=== PATIENT | male | born 1960 | race Caucasian/White ===

== ENCOUNTER 2020-05-15 06:46 | Outpatient (REF) | payer OTHER, SELFPAY ==
[2020-05-15 08:01] LABS: MANUAL DIFF FLAG NO
[2020-05-15 08:04] LABS: Eosinophils Absolute Auto 0.4 X10*3/uL (0.0-0.4); Eosinophils Percent Auto 9.9 % (0-4); Hematocrit 44.1 % (42-52); Hemoglobin 14.7 g/dl (14.0-18.0); Imm Gran Abs Auto 0.01 X10*3/uL (0.00-0.03); Imm Gran Pct Auto 0.2 % (0.0-0.4); Lymphocytes Absolute Auto 1.2 X10*3/uL (1.2-4.9); Lymphocytes Percent Auto 28.5 % (20-40); Mean Corpuscular HGB Conc 33.3 g/dl (31.0-36.0); Mean Corpuscular Hemoglobin 30.4 pg (27.0-33.0); Mean Corpuscular Volume 91.3 fL (80-98); Monocytes Absolute Auto 0.5 X10*3/uL (0.1-1.2); Monocytes Percent Auto 10.9 % (2-11); Neutrophils Absolute Auto 2.1 X10*3/uL (2.0-8.3); Neutrophils Percent Auto 49.5 % (45-73); Platelet Count 230 X10*3/uL (160-400); Red Blood Count 4.83 X10*6/uL (4.60-5.80); Red Cell Distribution Width 11.7 % (11.0-16.0); White Blood Count 4.1 X10*3/uL (4.8-10.8)
[2020-05-15 08:13] LABS: Glucose Urine UA NEG (NEG); Leukocyte Esterase Urine NEG (NEG); Nitrite Urine NEG (NEG); Specific Gravity - Urine 1.025 (1.005-1.025); Urine Blood NEG (NEG); Urine Ketones NEG (NEG); Urine Protein NEG (NEG-TRACE)
[2020-05-15 08:14] LABS: Appearance Urine CLEAR; Color Urine YELLOW
[2020-05-15 08:26] LABS: RBC Urine 0 /HPF (0); WBC Urine 0 /HPF (0-4)
[2020-05-15 09:13] LABS: Cholesterol 200 mg/dL; HDL Cholesterol 39 mg/dL; LDL Cholesterol Calculated 136 mg/dl; Triglycerides 129 mg/dL
[2020-05-15 09:33] LABS: Prostate Specific Antigen 0.52 ng/mL (<0.05-4.0); Thyroid Stimulating Hormone 1.02 uIU/mL (0.32-4.0)
== END 2020-05-15 06:47 | disposition home or self-care (01) ==
LOC: HO.LAB 06:46
PROVIDERS: Visit Provider Internal Medicine
DX: I10 Essential (primary) hypertension (principal)
CPT/HCPCS: 36415; 80061; 81001; 84153; 84443; 85025

== ENCOUNTER 2020-09-25 11:55 | Outpatient (REF) | payer OTHER, SELFPAY ==
--- NOTE | ~2020-09-25 | XR_ITS ---
EXAMINATION: XR CHEST CLINICAL INFORMATION: Flank pain COMPARISON: Previous chest x-ray August 2018 TECHNIQUE: 2 views of the chest were obtained. FINDINGS: The cardiac and mediastinal contours are stable. The lungs are clear. There is no pleural effusion or pneumothorax. There is curvature of the midthoracic spine to the right and degenerative change. There may be postsurgical changes to the right shoulder. XR/XR chest 2V IMPRESSION: No evidence for acute disease in the chest.
[2020-09-25 12:55] LABS: MANUAL DIFF FLAG NO
[2020-09-25 13:15] LABS: Basophils Percent Auto 0.8 % (0-2); Eosinophils Absolute Auto 0.4 X10*3/uL (0.0-0.4); Eosinophils Percent Auto 9.9 % (0-4); Hematocrit 41.8 % (42-52); Hemoglobin 13.9 g/dl (14.0-18.0); Imm Gran Abs Auto 0.01 X10*3/uL (0.00-0.03); Imm Gran Pct Auto 0.3 % (0.0-0.4); Lymphocytes Absolute Auto 1.4 X10*3/uL (1.2-4.9); Lymphocytes Percent Auto 34.9 % (20-40); Mean Corpuscular HGB Conc 33.3 g/dl (31.0-36.0); Mean Corpuscular Hemoglobin 30.3 pg (27.0-33.0); Mean Corpuscular Volume 91.1 fL (80-98); Mean Platelet Volume 9.1 fL (9.4-12.4); Monocytes Absolute Auto 0.5 X10*3/uL (0.1-1.2); Monocytes Percent Auto 11.4 % (2-11); Neutrophils Absolute Auto 1.7 X10*3/uL (2.0-8.3); Neutrophils Percent Auto 42.7 % (45-73); Platelet Count 238 X10*3/uL (160-400); Red Blood Count 4.59 X10*6/uL (4.60-5.80)
[2020-09-25 13:15] LABS: Glucose Urine UA NEG (NEG); Leukocyte Esterase Urine NEG (NEG); Nitrite Urine NEG (NEG); Urine Blood NEG (NEG); Urine Ketones NEG (NEG); Urine Protein NEG (NEG-TRACE)
[2020-09-25 13:20] LABS: Appearance Urine CLEAR; Color Urine STRAW
[2020-09-25 13:38] LABS: Alanine Aminotransferase 30 U/L (0-40); Albumin Level 4.3 g/dL (3.5-5.0); Alkaline Phosphatase 53 U/L (39-117); Anion Gap 14 (12-20); Aspartate Amino Transferase 34 U/L (5-37); Bilirubin Total 0.4 mg/dL (0.0-1.0); Blood Urea Nitrogen 16 mg/dL (9-16); C Reactive Protein 0.13 mg/dL (< or = 0.50); Calcium 9.1 mg/dL (8.4-10.2); Carbon Dioxide 25 mmol/L (22-29); Chloride 104 mmol/L (96-108); Estimated Glomerular Filt Rate > 60; Glucose Random 98 mg/dL (60-115); Lipase 25 U/L (8-78); Potassium 4.2 mmol/L (3.3-5.1); Sodium 139 mmol/L (135-145); Total Protein 7.1 g/dL (6.5-8.0)
[2020-09-25 13:44] LABS: Thyroid Stimulating Hormone 1.35 uIU/mL (0.32-4.0)
[2020-09-25 14:15] LABS: Prostate Specific Antigen 0.62 ng/mL (<0.05-4.0)
== END 2020-09-25 11:56 | disposition home or self-care (01) ==
LOC: HO.LAB 11:55
PROVIDERS: PCP Internal Medicine; Visit Provider Internal Medicine
DX: Z12.5 Encounter for screening for malignant neoplasm of prostate (principal); R10.9 Unspecified abdominal pain
CPT/HCPCS: 36415; 71046; 80053; 81003; 83690; 84153; 84443; 85025; 86140

== ENCOUNTER 2020-10-04 08:16 | Outpatient (REF) | payer OTHER, SELFPAY ==
--- NOTE | ~2020-10-04 | CT_ITS ---
EXAMINATION: CT ABDOMEN AND PELVIS WITHOUT CONTRAST CLINICAL INFORMATION: Abdominal pain COMPARISON: Previous abdominal ultrasound September [address] of the abdomen and pelvis June 2018 TECHNIQUE: Multidetector volumetric imaging was performed from the superior aspect of the liver through the pubic symphysis. Sagittal and coronal reformatted images were obtained on the technologist's workstation. This CT examination was performed using dose optimization techniques as appropriate, variously including the following: *Automated exposure control *Adjustment of mA and/or kV according to patient size (this includes techniques or standardized protocols for targeted exams where dose is matched to indication/reason for exam; i.e. extremities or head) *Use of iterative reconstruction technique DLP: 799 mGy-cm FINDINGS: LUNG BASES: The visualized lung bases are unremarkable. LIVER, GALLBLADDER, AND BILIARY TREE: The liver is normal in size, shape, and attenuation. No focal hepatic lesion or biliary ductal dilatation is present. The gallbladder is unremarkable with no evidence of radiopaque gallstones, gallbladder wall thickening, or obvious pericholecystic inflammatory changes. PANCREAS: Unremarkable. SPLEEN: Unremarkable. ADRENAL GLANDS: Unremarkable. KIDNEYS AND URETERS: The kidneys are normal in size, shape, and attenuation. No hydronephrosis, hydroureter, or calculi seen. No perinephric stranding. BLADDER: Not optimally distended. GASTROINTESTINAL TRACT: There is diverticulosis of the colon. No evidence of diverticulitis is seen. The small and large bowel are otherwise unremarkable. The appendix is unremarkable. Stomach is unremarkable. ABDOMINAL WALL: No significant hernia is appreciated. LYMPH NODES: Normal. VASCULAR: Unremarkable. PELVIC VISCERA: Unremarkable. OSSEOUS STRUCTURES: There are degenerative changes of the spine. 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 CT/CT abdomen pelvis wo con IMPRESSION: Diverticulosis of the colon. No evidence of diverticulitis.
== END 2020-10-04 08:17 | disposition home or self-care (01) ==
LOC: HO.CT 08:16
PROVIDERS: Visit Provider Internal Medicine
DX: R10.9 Unspecified abdominal pain (principal)
CPT/HCPCS: 74176

== ENCOUNTER → 2022-01-21 13:01 | Outpatient (BNVA) | payer SELFPAY | PROVIDERS: PCP Internal Medicine; Visit Provider Internal Medicine | DX: Z02.79 Encounter for issue of other medical certificate (principal) ==

== ENCOUNTER → 2023-04-27 07:43 | Outpatient (BNVA) | payer SELFPAY | PROVIDERS: PCP Internal Medicine; Visit Provider Physician Assistant Medical | DX: Z02.79 Encounter for issue of other medical certificate (principal) ==

== ENCOUNTER 2023-08-28 15:15 | Outpatient (AMB) | payer OTHER, SELFPAY ==
--- NOTE | 2023-08-28 15:28 | A.OFFVIS_ITS ---
Intake Intake Visit Reasons: Benign prostatic hyperplasia (Confirmed) Intake Note: New Patient presents for initial visit for BPH/nocturia Urology Medications: flomax Blood Thinner: none PVR: Carriage Rider Required: No Accompanied by: Self / Same As Patient Allergies No Known Allergies Allergy (Unverified 08/28/23 15:30) family hx of allergy to IVP dy Allergy (Unknown, Uncoded 08/28/23 15:30) Unknown LATEX Allergy (Unknown, Uncoded 08/28/23 15:30) Unknown N.K.D.A. Allergy (Unknown, Uncoded 08/28/23 15:30) Unknown Medication List - Last Reconciled 08/28/23 by Nazario Tavares MD propranolol ER 60 mg PO DAILY tamsulosin 0.4 mg PO DAILY terazosin 10 mg PO BEDTIME 30 days valsartan 160 mg PO DAILY HPI HPI Comments History of Present Illness Details Leroy is a pleasant male. He is a patient of Dr. Akers. He is seen for the following urologic conditions - bladder outlet obstruction Lower urinary tract symptoms Progressive Urinary weakness Feeling of incomplete emptying Did not tolerate tamsulosin or terazosin secondary to blood pressure issues Discussed renal bladder ultrasound with cystoscopy Review of Systems Const Denies chills and Denies fever(s) Card Reports no additional complaints and Denies syncope Resp Denies cough GI Denies abdominal pain and Denies heartburn Reports as per HPI and Denies change in libido Neuro Denies syncope Psych Denies change in libido Endo Denies change in libido Physical Exam Const General: cooperative, healthy appearing, comfortable and no acute distress Orientation/consciousness: patient oriented x3 HEENT Face and sinus: Yes normal facial exam Mouth: moist mucous membranes Neck Neck: Yes normal visual inspection, Yes full ROM and Yes trachea midline Chest Chest palpation & inspection: normal inspection of the chest Resp Effort & Inspection: normal respiratory effort, able to speak in complete sentences and no respiratory distress GI Inspection: Yes normal to inspection Back/Spine/Pelvis Cervical Spine: normal cervical lordosis Thoracic/Lumbar Spine: thoracic and lumbar spine normal to inspection Skin General skin exam: no rashes or lesions noted Neuro General: patient oriented x3, gait normal, tone normal and moves all extremities Extrem General: Yes normal to inspection and Yes capillary refill normal Office Procedures Post Void Residual Post Residual Void Post Void Residual (PVR): 0 [id number] Void Residual by ultrasound Results AMB Urinalysis, Automated UA Leukoctes 0 Robinson/uL Last Edit by Lacey William on 08/28/23 15:39 UA Nitrite Negative Last Edit by Lacey William on 08/28/23 15:39 UA Urobilinogen 0.2 mg/dL Last Edit by Lacey Willaim on 08/28/23 15:39 UA Protein 0 mg/dL Last Edit by Lacey William on 08/28/23 15:39 UA pH 7.5 Last Edit by Lacey William on 08/28/23 15:39 UA Blood 0 Neal/uL Last Edit by Lacey William on 08/28/23 15:39 UA Specific [place] 1.010 Last Edit by Lacey William on 08/28/23 15:39 UA Ketone Negative Last Edit by Lacey William on 08/28/23 15:39 UA Bilirubin 0 mg/dL Last Edit by Lacey William on 08/28/23 15:39 UA Glucose 0 mg/dL Last Edit by Lacey William on 08/28/23 15:39 Results Reviewed Results Reviewed: Laboratory Last Values Urine pH (Auto) 7.5 08/28/23 15:39 Specific [place] (Auto) 1.010 08/28/23 15:39 Urine Protein (Auto) 0 mg/dL 08/28/23 15:39 Glucose (UA)(Auto) 0 mg/dL 08/28/23 15:39 Urine Ketones (Auto) Negative 08/28/23 15:39 Urine Blood (Auto) 0 Neal/uL 08/28/23 15:39 Urine Nitrite (Auto) Negative 08/28/23 15:39 Urine Bilirubin (Auto) 0 mg/dL 08/28/23 15:39 Urine Urobilinogen (Auto) 0.2 mg/dL 08/28/23 15:39 Leukocyte Esterase (Auto) 0 Robinson/uL 08/28/23 15:39 Assessment & Plan Assessment & Plan (1) Bladder outlet obstruction: Code(s): N32.0 - Bladder-neck obstruction Plan Renal bladder ultrasound Cystoscopy Orders: Orders AMB Urinalysis Automated 08/28/23 Z13.9 - Encounter for screening, unspecified AMB Post Void Residual by ultrasound 08/28/23 Z13.9 - Encounter for screening, unspecified US bladder 08/28/23 R39.12 - Poor urinary stream, N32.0 - Bladder-neck obstruction Medications: New terazosin 10 mg PO BEDTIME 30 caps 1RF 30 days N32.0 - Bladder-neck obstruction, N40.1 - Benign prostatic hyperplasia with lower urinary tract symptoms, N13.8 - Other obstructive and reflux uropathy Patient Instructions: Imaging studies, laboratory and physical exam results were discussed and reviewed in detail. No major barriers to patient understanding were identified. An opportunity to ask questions regarding the treatment plan was provided. All questions were answered. The patient expressed understanding and agreement with the above treatment plan. The patient is aware they should contact our office by phone for worsening of their current condition or the appearance of new urologic symptoms. Compliance is encouraged with any medications and followup testing that is ordered. It is a privilege to participate in the urologic care of your patient. If you have any questions or concerns regarding treatment for the above conditions, or other urologic issues, please do not hesitate to contact me. The office telephone contact is [phone]. This note is constructed using voice recognition software. While every effort has been made to ensure accuracy food counter worker errors may have been included. Yours sincerely, Dr Nazario Tavares MD, MARTHA [facility] - Urology Providers of Expert, Compassionate Care for the Genitourinary System Coding Level of Care Code New Pt Level 4 (33449) Diagnoses Bladder outlet obstruction N32.0 CPT Codes Post Residual Void - PVR CPT Code: 12889-Rczb Void Residual by ultrasound ([id number])
== END 2023-08-28 15:42 | disposition home or self-care (01) ==
PROVIDERS: PCP Internal Medicine; Visit Provider Urology
DX: N32.0 Bladder-neck obstruction (principal)
CPT/HCPCS: 99204

== ENCOUNTER → 2023-08-28 15:15 | Outpatient (BNVA) | payer OTHER, SELFPAY | PROVIDERS: PCP Internal Medicine; Visit Provider Urology | DX: N40.1 Benign prostatic hyperplasia with lower urinary tract symptoms (principal); N13.8 Other obstructive and reflux uropathy | CPT/HCPCS: 51798; 81003 ==

== ENCOUNTER 2023-10-22 15:46 | Outpatient (REF) | payer OTHER, SELFPAY ==
--- NOTE | ~2023-10-22 | US_ITS ---
EXAMINATION: US PELVIS LIMITED (BLADDER) CLINICAL INFORMATION: Poor urinary stream. COMPARISON: CT abdomen and pelvis 10/04/2020. Ultrasound abdomen complete 10/25/2018 and 01/22/2017. MRI abdomen 06/03/2017. TECHNIQUE: Real-time imaging of the bladder. FINDINGS: BLADDER: Well distended. Mild diffuse trabeculation and borderline thickening of the bladder wall. Bilateral ureteral jets are demonstrated. Prevoid bladder volume is 436.9 mL. Postvoid bladder volume is 232.7 mL. ADDITIONAL FINDINGS: Prostate volume 42.5 mL, enlarged. US/US bladder IMPRESSION: 1. Mild diffuse trabeculation and borderline thickening of the bladder wall. 2. Postvoid bladder volume is 232.7 mL. 3. Enlarged prostate.
== END 2023-10-22 15:47 | disposition home or self-care (01) ==
LOC: HO.US 15:46
PROVIDERS: PCP Nurse Practitioner Family; Visit Provider Urology
DX: R39.12 Poor urinary stream (principal); N32.0 Bladder-neck obstruction
CPT/HCPCS: 76857

== ENCOUNTER 2023-10-30 09:57 | Outpatient (AMB) | payer OTHER, SELFPAY ==
--- NOTE | 2023-10-30 10:07 | A.OFFVIS_ITS ---
Intake Visit Reasons: cysto/US(set) Intake Note: Patient is Present for Cystoscopy Urology Med: None Antibiotic Allergy:None Blood Thinner:None URO- G Disposable Cystoscope lot: [id number] exp: 05/07/2026 Allergies No Known Allergies Allergy (Verified 10/30/23 10:11) family hx of allergy to IVP dy Allergy (Unknown, Uncoded 10/30/23 10:11) Unknown LATEX Allergy (Unknown, Uncoded 10/30/23 10:11) Unknown N.K.D.A. Allergy (Unknown, Uncoded 10/30/23 10:11) Unknown Medication List - Last Reconciled 10/30/23 by Nazario Tavares MD propranolol ER 60 mg PO DAILY tadalafil 5 mg PO DAILY 90 days tamsulosin 0.4 mg PO BEDTIME 90 days valsartan 160 mg PO DAILY HPI Comments Details: Leroy is a pleasant male. He is a patient of Dr. Akers. He is seen for the following urologic conditions - bladder outlet obstruction - overactive bladder Cystoscopy today Open bladder neck Trabeculation with mucosal change suggestive overactive bladder Trial daily tadalafil with tamsulosin Lower urinary tract symptoms Progressive Urinary weakness Feeling of incomplete emptying Did not tolerate tamsulosin or terazosin secondary to blood pressure issues Cystoscopy 11/19 open bladder neck Review of Systems Const Denies chills and Denies fever(s) Card Reports no additional complaints and Denies syncope Resp Denies cough GI Denies abdominal pain and Denies heartburn Reports as per HPI and Denies change in libido Neuro Denies syncope Psych Denies change in libido Endo Denies change in libido Physical Exam Const General: cooperative, healthy appearing, comfortable and no acute distress Orientation/consciousness: patient oriented x3 HEENT Face and sinus: Yes normal facial exam Mouth: moist mucous membranes Neck Neck: Yes normal visual inspection, Yes full ROM and Yes trachea midline Chest Chest palpation & inspection: normal inspection of the chest Resp Effort & Inspection: normal respiratory effort, able to speak in complete sentences and no respiratory distress GI Inspection: Yes normal to inspection Back/Spine/Pelvis Cervical Spine: normal cervical lordosis Thoracic/Lumbar Spine: thoracic and lumbar spine normal to inspection Skin General skin exam: no rashes or lesions noted Neuro General: patient oriented x3, gait normal, tone normal and moves all extremities Extrem General: Yes normal to inspection and Yes capillary refill normal Office Procedures Cystoscopy Consent Discussed risk and benefit or proposed procedure with the patient. Information consent for procedure given to the patient. Discussed technical aspects, risks, benefits and alternatives in full. Addressed all of the patient's questions and concerns regarding the procedure. The patient demonstrated knowledge and understanding. They wish to proceed with this procedure. Preparation The patient was prepped in the usual manner. A licensing services clerk was present and in the room. Genitalia was prepped with betadine solution in a sterile manner. Lidocaine Jelly 2% was placed into the urethra and 16Fr flexible Olympus cystoscope was inserted into the meatus after adequate lubrication. Procedure Cystoscopy performed using a disposable Urovue digital 16 Polish cystoscope. Meatus circumcised Urethra anterior and posterior within normal Prostatic Urethra unremarkable Bladder examination with retroflexion of cystoscope Bladder Orifices normal shape and position Bladder Capacity normal Trabeculations grade 2 Cellule Formation - Diverticulum Formation - Mucosal Erythema - Bladder Tumor - 23475-[id number] DISPOSABLE SCOPE URO-G FLEXIBLE SCOPE Procedure code (CPT) selection complete Office Meds lidocaine HCl 2 % mucosal jelly in applicator Performing Provider: Nazario Tavares MD Performing Location: [facility] [place] [facility] Administered by: Cuauhtemoc Pritchett LPN on 10/30/23 10:27 Dose Route Admin Location Dispensed Lot Number Expiration Date ND Truckload Checker 10 mL intra-urethral 10 mL nitrofurantoin monohydrate/macrocrystals 100 mg capsule Performing Provider: Nazario Tavares MD Performing Location: [facility] [place] [facility] Administered by: Cuauhtemoc Pirtchett LPN on 10/30/23 10:27 Dose Route Admin Location Dispensed Lot Number Expiration Date ND Truckload Checker 100 mg PO 1 cap naproxen 500 mg tablet Performing Provider: Nazario Tavares MD Performing Location: [facility] [place] [facility] Administered by: Cuauhtemoc Pritchett LPN on 10/30/23 10:27 Dose Route Admin Location Dispensed Lot Number Expiration Date ND Truckload Checker 500 mg PO 1 tab Results AMB Urinalysis, Automated UA Leukoctes 0 Robinson/uL Last Edit by LASHA Nugent on 10/30/23 10:21 UA Nitrite Negative Last Edit by LASHA Nugent on 10/30/23 10:21 UA Urobilinogen 0.2 mg/dL Last Edit by LASHA Nugent on 10/30/23 10:2 1 UA Protein 0 mg/dL Last Edit by Kim El, A on 10/30/23 10:21 UA pH 6.5 Last Edit by Kim El, A on 10/30/23 10:21 UA Blood 0 Neal/uL Last Edit by Kim El, A on 10/30/23 10:21 UA Specific [place] 1.005 Last Edit by Kim El, A on 10/30/23 10: 21 UA Ketone Negative Last Edit by Kim El, A on 10/30/23 10:21 UA Bilirubin 0 mg/dL Last Edit by Kim El A on 10/30/23 10:21 UA Glucose 0 mg/dL Last Edit by Kim El, A on 10/30/23 10:21 Results Reviewed Results Reviewed: Laboratory Last Values Urine pH (Auto) 6.5 10/30/23 10:12 Specific [place] (Auto) 1.005 10/30/23 10:12 Urine Protein (Auto) 0 mg/dL 10/30/23 10:12 Glucose (UA)(Auto) 0 mg/dL 10/30/23 10:12 Urine Ketones (Auto) Negative 10/30/23 10:12 Urine Blood (Auto) 0 Neal/uL 10/30/23 10:12 Urine Nitrite (Auto) Negative 10/30/23 10:12 Urine Bilirubin (Auto) 0 mg/dL 10/30/23 10:12 Urine Urobilinogen (Auto) 0.2 mg/dL 10/30/23 10:12 Leukocyte Esterase (Auto) 0 Robinson/uL 10/30/23 10:12 Assessment & Plan Assessment & Plan (1) Bladder outlet obstruction: Code(s): N32.0 - Bladder-neck obstruction Category: Medical (2) Overactive bladder: Code(s): N32.81 - Overactive bladder Category: Medical Plan Three-month follow-up - Orders: Orders AMB Cystoscopy Today N32.0 - Bladder-neck obstruction AMB Urinalysis Automated Today Z13.9 - Encounter for screening, unspecified Medications: New tamsulosin 0.4 mg PO BEDTIME 90 days 90 caps 1RF N13.8 - Other obstructive and reflux uropathy, N32.0 - Bladder-neck obstruction, N40.1 - Benign prostatic hyperplasia with lower urinary tract symptoms tadalafil 5 mg PO DAILY 90 days 90 tabs 0RF sexual activity N32.81 - Overactive bladder Patient Instructions: Imaging studies, laboratory and physical exam results were discussed and reviewed in detail. No major barriers to patient understanding were identified. An opportunity to ask questions regarding the treatment plan was provided. All questions were answered. The patient expressed understanding and agreement with the above treatment plan. The patient is aware they should contact our office by phone for worsening of their current condition or the appearance of new urologic symptoms. Compliance is encouraged with any medications and followup testing that is ordered. It is a privilege to participate in the urologic care of your patient. If you have any questions or concerns regarding treatment for the above conditions, or other urologic issues, please do not hesitate to contact me. The office telephone contact is [phone]. This note is constructed using voice recognition software. While every effort has been made to ensure accuracy global sourcing manager errors may have been included. Yours sincerely, Dr Nazario Tavares MD, MARTHA [facility] - Urology Providers of Expert, Compassionate Care for the Genitourinary System Coding Level of Care Code Est Pt Level 4 (67345) Diagnoses Bladder outlet obstruction N32.0 Overactive bladder N32.81 CPT Codes Cystoscopy - CPT: 81422-Lalwacqjmg ([id number])
== END 2023-10-30 11:00 | disposition home or self-care (01) ==
PROVIDERS: PCP Internal Medicine; Visit Provider Urology
DX: N32.0 Bladder-neck obstruction (principal); N32.81 Overactive bladder; Z13.9 Encounter for screening, unspecified
CPT/HCPCS: 52000; 99214

== ENCOUNTER → 2023-10-30 09:57 | Outpatient (BNVA) | payer OTHER, SELFPAY | PROVIDERS: PCP Internal Medicine; Visit Provider Urology | DX: N32.81 Overactive bladder (principal); N40.1 Benign prostatic hyperplasia with lower urinary tract symptoms; N13.8 Other obstructive and reflux uropathy | CPT/HCPCS: 52000; 81003 ==

== ENCOUNTER 2024-02-09 08:43 | Outpatient (AMB) | payer OTHER, SELFPAY ==
--- NOTE | 2024-02-09 08:45 | A.OFFVIS_ITS ---
Intake Visit Reasons: 3M Follow Up-PVR/Med Review(Tamsulosin/Tadalafil) Intake Note: Patient presents to the office today for a 3 month follow up/PVR/med review Urology Medications: tamsulosin,tadalafil Blood Thinner: none PVR:0mL Flow Coordinator Required: No Accompanied by: Self / Same As Patient Allergies No Known Allergies Allergy (Verified 02/09/24 08:45) family hx of allergy to IVP dy Allergy (Unknown, Uncoded 02/09/24 08:45) Unknown LATEX Allergy (Unknown, Uncoded 02/09/24 08:45) Unknown N.K.D.A. Allergy (Unknown, Uncoded 02/09/24 08:45) Unknown Medication List - Last Reconciled 02/09/24 by Nazario Tavares MD propranolol ER 60 mg PO DAILY tadalafil 5 mg PO DAILY 90 days tamsulosin 0.8 mg (2 x 0.4 mg) PO BEDTIME 90 days valsartan 160 mg PO DAILY HPI Comments Details: Leroy is a pleasant male. He is a patient of Dr. Akers. He is seen for the following urologic conditions - bladder outlet obstruction - overactive bladder Follow-up trial with daily tadalafil and tamsulosin Good success with nocturia - down from 3-4 times at night to 1-2 Still has urge during the day Is drinking coffee 3 times per day Will continue tamsulosin with tadalafil Cystoscopy - 08/22 - Open bladder neck - Trabeculation with mucosal change suggestive overactive bladder Lower urinary tract symptoms Progressive Urinary weakness Feeling of incomplete emptying Did not tolerate tamsulosin or terazosin secondary to blood pressure issues Cystoscopy 11/19 open bladder neck Review of Systems Const Denies chills and Denies fever(s) Card Reports no additional complaints and Denies syncope Resp Denies cough GI Denies abdominal pain and Denies heartburn Reports as per HPI and Denies change in libido Neuro Denies syncope Psych Denies change in libido Endo Denies change in libido Physical Exam Const General: cooperative, healthy appearing, comfortable and no acute distress Orientation/consciousness: patient oriented x3 HEENT Face and sinus: Yes normal facial exam Mouth: moist mucous membranes Neck Neck: Yes normal visual inspection, Yes full ROM and Yes trachea midline Chest Chest palpation & inspection: normal inspection of the chest Resp Effort & Inspection: normal respiratory effort, able to speak in complete sentences and no respiratory distress GI Inspection: Yes normal to inspection Back/Spine/Pelvis Cervical Spine: normal cervical lordosis Thoracic/Lumbar Spine: thoracic and lumbar spine normal to inspection Skin General skin exam: no rashes or lesions noted Neuro General: patient oriented x3, gait normal, tone normal and moves all extremities Extrem General: Yes normal to inspection and Yes capillary refill normal Office Procedures Post Void Residual Post Residual Void Post Void Residual (PVR): 0 [id number] Void Residual by ultrasound Results AMB Urinalysis, Automated UA Leukoctes 0 Robinson/uL Last Edit by Gwen Vu CMA on 02/09/24 08:56 UA Nitrite Negative Last Edit by Gwen Vu CMA on 02/09/24 08:56 UA Urobilinogen 0.2 mg/dL Last Edit by Gwen Vu CMA on 02/09/24 08:56 UA Protein 15 mg/dL Last Edit by Gwen Vu CMA on 02/09/24 08:56 UA pH 6.0 Last Edit by Gwen Vu CMA on 02/09/24 08:56 UA Blood 0 Neal/uL Last Edit by Gwen Vu CMA on 02/09/24 08:56 UA Specific [place] 1.015 Last Edit by Gwen Vu CMA on 02/09/24 08:56 UA Ketone Negative Last Edit by Gwen Vu CMA on 02/09/24 08:56 UA Bilirubin 0 mg/dL Last Edit by Gwen Vu CMA on 02/09/24 08:56 UA Glucose 0 mg/dL Last Edit by Gwen Vu CMA on 02/09/24 08:56 Results Reviewed Results Reviewed: Laboratory Last Values Urine pH (Auto) 6.0 02/09/24 08:48 Specific [place] (Auto) 1.015 02/09/24 08:48 Urine Protein (Auto) 15 mg/dL 02/09/24 08:48 Glucose (UA)(Auto) 0 mg/dL 02/09/24 08:48 Urine Ketones (Auto) Negative 02/09/24 08:48 Urine Blood (Auto) 0 Neal/uL 02/09/24 08:48 Urine Nitrite (Auto) Negative 02/09/24 08:48 Urine Bilirubin (Auto) 0 mg/dL 02/09/24 08:48 Urine Urobilinogen (Auto) 0.2 mg/dL 02/09/24 08:48 Leukocyte Esterase (Auto) 0 Robinson/uL 02/09/24 08:48 Assessment & Plan Assessment & Plan (1) Overactive bladder: Code(s): N32.81 - Overactive bladder Category: Medical (2) Bladder outlet obstruction: Code(s): N32.0 - Bladder-neck obstruction Category: Medical Plan Six-month follow-up He will work on dietary restrictions Orders: Orders AMB Post Void Residual by ultrasound Today N381 - Overactive bladder AMB Urinalysis Automated Today N381 - Overactive bladder Medications: Refilled tadalafil 5 mg PO DAILY 90 days 90 tabs 1RF sexual activity N381 - Overactive bladder Patient Instructions: Imaging studies, laboratory and physical exam results were discussed and reviewed in detail. No major barriers to patient understanding were identified. An opportunity to ask questions regarding the treatment plan was provided. All questions were answered. The patient expressed understanding and agreement with the above treatment plan. The patient is aware they should contact our office by phone for worsening of their current condition or the appearance of new urologic symptoms. Compliance is encouraged with any medications and followup testing that is ordered. It is a privilege to participate in the urologic care of your patient. If you have any questions or concerns regarding treatment for the above conditions, or other urologic issues, please do not hesitate to contact me. The office telephone contact is [phone]. This note is constructed using voice recognition software. While every effort has been made to ensure accuracy boiler cleaner errors may have been included. Yours sincerely, Dr Nazario Tavares MD, MARTHA [facility] - Urology Providers of Expert, Compassionate Care for the Genitourinary System Coding Level of Care Code Est Pt Level 3 (65890) Diagnoses Overactive bladder N32.81 Bladder outlet obstruction N32.0 CPT Codes Post Residual Void - PVR CPT Code: 27814-Ffex Void Residual by ultrasound ([id number])
== END 2024-02-09 09:22 | disposition home or self-care (01) ==
PROVIDERS: PCP Internal Medicine; Visit Provider Urology
DX: N32.81 Overactive bladder (principal); N32.0 Bladder-neck obstruction
CPT/HCPCS: 99213

== ENCOUNTER → 2024-02-09 08:43 | Outpatient (BNVA) | payer OTHER, SELFPAY | PROVIDERS: PCP Internal Medicine; Visit Provider Urology | DX: N32.81 Overactive bladder (principal); N32.0 Bladder-neck obstruction; Z79.899 Other long term (current) drug therapy | CPT/HCPCS: 51798; 81003 ==

== ENCOUNTER 2024-08-16 08:23 | Outpatient (AMB) | payer OTHER, SELFPAY ==
--- NOTE | 2024-08-16 08:25 | A.OFFVIS_ITS ---
Intake Visit Reasons: 6m/PVR Intake Note: Patient presents today for follow up on: PVR Urology Medications: tamsulosin, oxybutynin Blood Thinner: none PVR: Commercial Loan Administrator Required: No Accompanied by: Self / Same As Patient Allergies No Known Allergies Allergy (Verified 08/16/24 08:32) family hx of allergy to IVP dy Allergy (Unknown, Uncoded 08/16/24 08:32) Unknown LATEX Allergy (Unknown, Uncoded 08/16/24 08:32) Unknown N.K.D.A. Allergy (Unknown, Uncoded 08/16/24 08:32) Unknown HPI Comments Details: Leroy is a pleasant male. He is a patient of Dr. Akers. He is seen for the following urologic conditions - bladder outlet obstruction - overactive bladder Follow-up from oxybutynin trial Daily oxybutynin with tamsulosin Had initial Good success with nocturia - down from 3-4 times at night to 1-2 Discussed caffeine management He knows he has too many bladder triggers Six-month follow-up PSA Discussed nutrition and activity patterns Lower urinary tract symptoms Progressive Urinary weakness Feeling of incomplete emptying Did not tolerate tamsulosin or terazosin secondary to blood pressure issues Cystoscopy 11/19 open bladder neck - Trabeculation with mucosal change suggestive overactive bladder Review of Systems Const Denies chills and Denies fever(s) Card Reports no additional complaints and Denies syncope Resp Denies cough GI Denies abdominal pain and Denies heartburn Reports as per HPI and Denies change in libido Neuro Denies syncope Psych Denies change in libido Endo Denies change in libido Physical Exam Const General: cooperative, healthy appearing, comfortable and no acute distress Orientation/consciousness: patient oriented x3 HEENT Face and sinus: Yes normal facial exam Mouth: moist mucous membranes Neck Neck: Yes normal visual inspection, Yes full ROM and Yes trachea midline Chest Chest palpation & inspection: normal inspection of the chest Resp Effort & Inspection: normal respiratory effort, able to speak in complete sentences and no respiratory distress GI Inspection: Yes normal to inspection Back/Spine/Pelvis Cervical Spine: normal cervical lordosis Thoracic/Lumbar Spine: thoracic and lumbar spine normal to inspection Skin General skin exam: no rashes or lesions noted Neuro General: patient oriented x3, gait normal, tone normal and moves all extremities Extrem General: Yes normal to inspection and Yes capillary refill normal Office Procedures Post Void Residual Post Residual Void Post Void Residual (PVR): 40 [id number] Void Residual by ultrasound Results AMB Urinalysis, Automated UA Leukoctes 0 Robinson/uL Last Edit by RELEASEIF on 08/16/24 08:51 UA Nitrite Last Edit by RELEASEIF on 08/16/24 08:51 UA Urobilinogen 0.2 mg/dL Last Edit by RELEASEIF on 08/16/24 08:51 UA Protein 0 mg/dL Last Edit by RELEASEIF on 08/16/24 08:51 UA pH 6.0 Last Edit by RELEASEIF on 08/16/24 08:51 UA Blood 0 Neal/uL Last Edit by RELEASEIF on 08/16/24 08:51 UA Specific [place] 1.010 Last Edit by RELEASEIF on 08/16/24 08:51 UA Ketone Last Edit by RELEASEIF on 08/16/24 08:51 UA Bilirubin 0 mg/dL Last Edit by RELEASEIF on 08/16/24 08:51 UA Glucose 0 mg/dL Last Edit by RELEASEIF on 08/16/24 08:51 Results Reviewed Results Reviewed: Laboratory Last Values Urine pH (Auto) 6.0 08/16/24 08:35 Specific [place] (Auto) 1.010 08/16/24 08:35 Urine Protein (Auto) 0 mg/dL 08/16/24 08:35 Glucose (UA)(Auto) 0 mg/dL 08/16/24 08:35 Urine Blood (Auto) 0 Neal/uL 08/16/24 08:35 Urine Bilirubin (Auto) 0 mg/dL 08/16/24 08:35 Urine Urobilinogen (Auto) 0.2 mg/dL 08/16/24 08:35 Leukocyte Esterase (Auto) 0 Robinson/uL 08/16/24 08:35 Assessment & Plan Assessment & Plan (1) Bladder outlet obstruction: Code(s): N32.0 - Bladder-neck obstruction Category: Medical (2) Overactive bladder: Code(s): N32.81 - Overactive bladder Category: Medical Plan Six-month follow-up PSA Orders: Orders AMB Urinalysis Automated Today Z13.9 - Encounter for screening, unspecified Prostate Specific Antigen 6 Months N32.0 - Bladder-neck obstruction AMB Post Void Residual by ultrasound Today N32.81 - Overactive bladder Medications: Changed From oxybutynin chloride ER 5 mg PO DAILY 30 days 30 tabs 3RF To oxybutynin chloride ER 5 mg PO DAILY 90 days 90 tabs 1RF Patient Instructions: This note is constructed using voice recognition software. While every effort has been made to ensure accuracy cross country coach errors may have been included. Imaging studies, laboratory and physical exam results were discussed and reviewed in detail. No major barriers to patient understanding were identified. An opportunity to ask questions regarding the treatment plan was provided. All questions were answered. The patient expressed understanding and agreement with the above treatment plan. The patient is aware they should contact our office by phone for worsening of their current condition or the appearance of new urologic symptoms. Compliance is encouraged with any medications and followup testing that is ordered. It is a privilege to participate in the urologic care of your patient. If you have any questions or concerns regarding treatment for the above conditions, or other urologic issues, please do not hesitate to contact me. The office telephone contact is [phone]. Sincerely, Dr Nazario Tavares MD, MARTHA [facility] - Urology Compassionate Specialist Care for the Genitourinary System Coding Level of Care Code Est Pt Level 3 (47579) Diagnoses Bladder outlet obstruction N32.0 Overactive bladder N32.81 CPT Codes Post Residual Void - PVR CPT Code: 81440-Ejia Void Residual by ultrasound ([id number])
== END 2024-08-16 09:17 | disposition home or self-care (01) ==
PROVIDERS: PCP Internal Medicine; Visit Provider Urology
DX: N32.0 Bladder-neck obstruction (principal); N32.81 Overactive bladder; Z13.9 Encounter for screening, unspecified
CPT/HCPCS: 99213

== ENCOUNTER → 2024-08-16 08:23 | Outpatient (BNVA) | payer OTHER, SELFPAY | PROVIDERS: PCP Internal Medicine; Visit Provider Urology | DX: N32.81 Overactive bladder (principal); N32.0 Bladder-neck obstruction; Z79.899 Other long term (current) drug therapy | CPT/HCPCS: 51798; 81003 ==

== ENCOUNTER 2024-08-16 09:25 | Outpatient (REF) | payer OTHER, SELFPAY ==
[2024-08-16 11:07] LABS: Prostate Specific Antigen 2.35 ng/mL (<0.05-4.0)
== END 2024-08-16 09:26 | disposition home or self-care (01) ==
LOC: HO.10HDL 09:25
PROVIDERS: Visit Provider Urology
DX: N32.0 Bladder-neck obstruction (principal); Z12.5 Encounter for screening for malignant neoplasm of prostate
CPT/HCPCS: 36415; 84153

== ENCOUNTER → 2024-08-30 10:54 | Outpatient (BNVA) | payer SELFPAY | PROVIDERS: PCP Internal Medicine; Visit Provider Physician Assistant Medical | DX: Z02.79 Encounter for issue of other medical certificate (principal) ==

== ENCOUNTER 2025-02-01 13:40 | Outpatient (REF) | payer MEDICAID, SELFPAY ==
--- OUTSIDE RECORDS SUMMARY | 2025-02-01 14:14 | XMS_ITS | Clinical Summary ---
Author Organization [facility] Address [address] [place] [address] Phone Care Team Providers Care Network Support Administrator Name Role Phone Robert Youngblood MD Primary Care Provider [phone] Allergies Active Allergy Reactions Criticality Noted Date Comments Latex Itching 05/31/2021 Medications famotidine (PEPCID) 20 MG tablet Take 20 mg by mouth 2 (two) times a day. Active fluticasone propionate (FLONASE) 50 mcg/actuation nasal spray 1 spray by Nasal route daily. Active loratadine (CLARITIN) 10 mg tablet Take 10 mg by mouth daily. Active multivitamin with minerals tablet Take 1 tablet by mouth daily. Active propranoloL (INDERAL LA) 60 mg 24 hr capsule Take 60 mg by mouth daily. Active tamsulosin (FLOMAX) 0.4 mg Cap Take 0.4 mg by mouth daily. Active VITAMIN A ORAL Take 90 mcg by mouth daily. Takes 3 tab (30 mcg/tab) po daily Active cyanocobalamin, vitamin B-12, (VITAMIN B-12) 1000 MCG tablet Take 1,000 mcg by mouth daily. Active cholecalciferol, vitamin D3, (VITAMIN D3) 25 mcg (1,000 unit) capsule Take 3,000 Units by mouth daily. Active Social History Tobacco Use Types Packs/Day Years Used Date Smoking Tobacco: Former Smokeless Tobacco: Never Alcohol Use Standard Drinks/Week Comments Not Currently 0 (1 standard drink = 0.6 oz pur e alcohol) Education Answer Date Recorded Are you interested in more education? Not on magdalena e 10/23/2022 Are you concerned about learning? Not on file 10/23/2022 No 10/23/2022 No 10/23/2022 Digital Access Answer Date Recorded No 11/24/2022 No 11/24/2022 Reliable internet access at home? Not on file 11/24/2022 Device with a working camera? Not on file Sex and Gender Information Value Date Recorded Sex Assigned at Not on file Legal Sex Male 7:32 PM EST Gender Identity Not on file Sexual Orientation Not on file Last Filed Vital Signs Vital Sign Reading Time Taken Comments Blood Pressure 168/94 05/31/2021 4:08 PM EST Pulse 63 05/31/2021 4:08 PM EST Temperature 36.7 C (98.1 F) 05/31/2021 4:08 PM EST Respiratory Rate 18 05/31/2021 4:08 PM EST Oxygen Saturation 98% 05/31/2021 4:08 PM EST Inhaled Oxygen Concentration - - Weight 120.2 kg (265 lb) 05/31/2021 4:08 PM EST Height 179.1 cm (5' 10.5 ) 12/05/2011 10:14 AM E DT Body Mass Index 37.49 12/05/2011 10:14 AM EDT Plan of Treatment Health Maintenance Due Date Last Done Comments SMOKING Hx and SMOKELESS TOBACCO SCREENING 02/08/1973 HIV ONE-TIME SCREENING (18-6 5 YEARS) 02/08/1978 COLOGUARD 02/08/2005 COLONOSCOPY 02/08/2005 COLORECTAL CANCER SCREENING 02/08/2005 FIT TEST 02/08/2005 FOBT 02/08/2005 SIGMOIDOSCOPY 02/08/2005 VIRTUAL COLONOSCOPY 02/08/2005 PNEUMOCOCCAL VACCINES (50+ years) (1 of 1 - PCV) 02/08/2010 ZOSTER VACCINES (1 of 2) 02/08/2010 DEPRESSION SCREENING 10/16/2023 10/15/2022, 10/15/2022 COVID-19 VACCINE (3 - 2023-2 5 season) 2024 10/17/2020, 09/26/2020 LIPID PANEL 08/11/2027 08/11/2022 Adult Td,Tdap Booster 10/24/2032 10/24/2022 RSV VACCINE (1 - 1-dose 75+ series) 02/08/2035 HEPATITIS C SCREENING Completed 02/03/2023 HEPATITIS A VACCINES Aged Out No long er eligible based on patient's age to complete this topic HIB VACCINES Aged Out No longer eligi ble based on patient's age to complete this topic MENINGOCOCCAL VACCINES (ACWY) Aged Out No longer eligible based on patient's age to complete this topic MENINGOCOCCAL VACCINES (B) Aged Out N o longer eligible based on patient's age to complete this topic Medical Devices Not on file Insurance [employer] MCO ACO [employer] MCO [facility] O WILLIAMSThe Micro [facility] ACO Care Teams Network Support Administrator Relationship Specialty Start Date End Date Robert Youngblood MD [address] [place] [phone] [email or web address] PCP - General Family Medicine 05/04/24 Additional Source Comments The information contained in this document represents components of the legal health record. It is not the complete legal health record.[facility]
--- OUTSIDE RECORDS SUMMARY | 2025-02-01 14:14 | XMS_ITS | Patient Health Record ---
Author Organization [facility] Address [address] [place] [address] Care Team Providers Care Slip Mixer Name Role Phone Oswald (RETIRED) Adán HECTOR Primary Care Provid er Unavailable Fernando Allison Jr Unavailable Reason For Referral No Information Medications Medication SIG (Take, Route, Fr equency, Duration) Notes Start Date End Date Status Cardizem 30 MG 1 tablet before meal s and at bedtime Orally Three times a day for 30 day(s) 12/18/2011 Active Omeprazole 06/29/2024 06/29/2024 Active Vitamin D3 Active Multivitamins Active Lisinopril Active Problems Problem Type SNOMED Code ICD Code Onset Dates Problem Status W/U Status Risk Notes Problem Esophageal reflux (800111665) Esophageal reflux (530.81) Active confirmed Problem Blood in stool (578.1) Active confirmed Problem Esophageal dysmotility (656376458) Esophageal dysmotility (530.5) Active confirmed Plan Of Treatment No Information Insurance Providers Payer Name Payer Address Payer Phone Subscriber Number Group Number Insured Name Patient Relationship to Insured Coverage Start Date Coverage End Date [facility] [address] [address] [place], [place] [id number] RONNI CORRALES Self - patient is the insured Medical (General) History Medical History History ICD Code plastic surgery ears Denies [place],DM,CVA,Lung disease,renal dise ase Surgical History Surgery Date(Month/Year) Plastic surgery on ears Left hand finger nerve repair
[2025-02-01 15:27] LABS: Prostate Specific Antigen 0.67 ng/mL (<0.05-4.0)
== END 2025-02-01 13:41 | disposition home or self-care (01) ==
LOC: HO.LAB 13:40
PROVIDERS: Visit Provider Urology
DX: N32.81 Overactive bladder (principal); N32.0 Bladder-neck obstruction
CPT/HCPCS: 36415; 84153

== ENCOUNTER 2025-02-14 08:55 | Outpatient (AMB) | payer MEDICAID, SELFPAY ==
--- NOTE | 2025-02-14 08:53 | A.OFFVIS_ITS ---
Intake Visit Reasons: 6m/PSA Intake Note: Patient presents today for 6 mo follow up Urology Medications: tamsulosin, oxybutynin Blood Thinner: none Labs done : 02/01/25 PSA 0.67 PVR: 56 mls Childcare Director Required: No Accompanied by: Self / Same As Patient Allergies No Known Allergies Allergy (Verified 02/14/25 08:54) family hx of allergy to IVP dy Allergy (Unknown, Uncoded 08/16/24 08:32) Unknown LATEX Allergy (Unknown, Uncoded 08/16/24 08:32) Unknown N.K.D.A. Allergy (Unknown, Uncoded 08/16/24 08:32) Unknown HPI Comments Details: Leroy is a pleasant male. He is a patient of Dr. Akers. He is seen for the following urologic conditions - bladder outlet obstruction - overactive bladder Daily oxybutynin with tamsulosin Had initial Good success with nocturia - down from 3-4 times at night to 1-2 Continued good success with medications Has cut coffee down to 2 cups a day Discussed nutrition and activity patterns Lower urinary tract symptoms Progressive Urinary weakness Feeling of incomplete emptying Did not tolerate terazosin secondary to blood pressure issues Cystoscopy 11/19 open bladder neck - Trabeculation with mucosal change suggestive overactive bladder PSA - 02/20 0.7 Assessment & Plan Assessment & Plan (1) Bladder outlet obstruction: Code(s): N32.0 - Bladder-neck obstruction Category: Medical (2) Overactive bladder: Code(s): N32.81 - Overactive bladder Category: Medical Plan Twelve month follow-up Medications: Refilled oxybutynin chloride ER 5 mg PO DAILY 90 tabs 3RF 90 days tamsulosin 0.8 mg (2 x 0.4 mg) PO BEDTIME 180 caps 3RF 90 days N13.8 - Other obstructive and reflux uropathy, N32.0 - Bladder-neck obstruction, N40.1 - Benign prostatic hyperplasia with lower urinary tract symptoms Patient Instructions: This note is constructed using voice recognition software. While every effort has been made to ensure accuracy science specialist errors may have been included. Imaging studies, laboratory and physical exam results were discussed and reviewed in detail. No major barriers to patient understanding were identified. An opportunity to ask questions regarding the treatment plan was provided. All questions were answered. The patient expressed understanding and agreement with the above treatment plan. The patient is aware they should contact our office by phone for worsening of their current condition or the appearance of new urologic symptoms. Compliance is encouraged with any medications and followup testing that is ordered. It is a privilege to participate in the urologic care of your patient. If you have any questions or concerns regarding treatment for the above conditions, or other urologic issues, please do not hesitate to contact me. The office telephone contact is [phone]. Sincerely, Dr Nazario Tavares MD, MARTHA [facility] - Urology Compassionate Specialist Care for the Genitourinary System Coding Level of Care Code Est Pt Level 3 (67336) Complex EM visit Add On G2211 Diagnoses Bladder outlet obstruction N32.0 Overactive bladder N32.81
--- OUTSIDE RECORDS SUMMARY | 2025-02-14 09:48 | XMS_ITS | Patient Health Record ---
Author Organization [facility] Address [address] [place] [address] Care Team Providers Care Copy Director Name Role Phone Oswald (RETIRED) Adán HECTOR Primary Care Provid er Unavailable Fernando Allison Jr Unavailable [phone] Reason For Referral No Information Medications Medication [...] W/U Status Risk Notes Problem Esophageal reflux (392916600) Esophageal reflux (530.81) Active confirmed Problem Blood in stool (342699682) Blood in stool (578.1) Active confirmed Problem Esophageal dysmotility (971072873) Esophageal dysmotility (530.5) Active confirmed Plan Of Treatment No Information Insurance Providers Payer Name Payer Address Payer Phone Subscriber Number Group Number Insured Name Patient Relationship to Insured Coverage Start Date Coverage End Date [facility] [address] [address] [place], [place] [id number] RONNI CORRALES Self - patient is the insured Medical (General) History Medical History History ICD Code plastic surgery ears Denies [place],DM,CVA,Lung disease,renal dise ase Surgical History Surgery Date(Month/Year) Plastic surgery on ears Left hand finger nerve repair
--- OUTSIDE RECORDS SUMMARY | 2025-02-14 09:48 | XMS_ITS | Clinical Summary ---
Author Organization [facility] Address [address] [place] [phone] Phone Care Team Providers Care Black Pickler Name Role Phone Robert Youngblood MD Primary Care Provider Allergies Active Allergy Reactions Criticality Noted Date [...] - 2023-2 5 season) 2024 10/17/2020, 09/26/2020 ABDOMINAL AORTIC ANEURYSM (AAA) SCREENING 02/08/2025 LIPID PANEL 08/11/2027 08/11/2022 Adult Td,Tdap Booster [...] topic Medical Devices Not on file Insurance [employer] [address] ACO [employer] O O [employer] [facility] Oil sands express [facility] Ag[employer] Media NetworkHEALTH O ACO [employer] Media NetworkLONG [facility]LAND COMM[facility]ITY [facility] ACO [facility] ACO Care Teams Black Pickler Relationship Specialty Start Date End Date Robert Youngblood MD [address] [place] [phone] [email or web address] PCP - General Family Medicine 05/04/24 Additional Source Comments The information contained in this document represents components of the legal health record. It is not the complete legal health record.[facility]
== END 2025-02-14 09:30 | disposition home or self-care (01) ==
LOC: HO.HUSH 08:55
PROVIDERS: PCP Internal Medicine; Visit Provider Urology
DX: N32.0 Bladder-neck obstruction (principal); N32.81 Overactive bladder
CPT/HCPCS: 99213

== ENCOUNTER → 2025-02-14 08:55 | Outpatient (BNVA) | payer MEDICAID, SELFPAY | PROVIDERS: PCP Internal Medicine; Visit Provider Urology | DX: N32.0 Bladder-neck obstruction (principal); N32.81 Overactive bladder | CPT/HCPCS: 51798; 99212 ==

== ENCOUNTER 2025-03-26 08:26 | Emergency (ER) | payer MEDICARE, SELFPAY ==
[2025-03-26 08:38] VITALS: BP 170/84; PULSE 62; RESP 18; TEMP 36.6; O2SAT 98; BMI 39.7
--- NOTE | 2025-03-26 08:49 | ED.EAR ---
HPI - Ear Problem General Chief complaint: Ear Problems Stated complaint: q tip cotton stuck in ear Time Seen by Provider: 03/26/25 08:35 Source: patient Mode of arrival: ambulatory Limitations: no limitations History of Present Illness ED Provider: JORGE Thompson HPI Narrative: 65-year-old male presents to the emergency department with concerns of possible Q-tip to the right ear. He reports he felt like there was something in his ear, he put a Q-tip in there and when he took the Q-tip out there was no tip on it. He thinks it is inside his ear. Denies ear pain, otorrhea, fevers, chills, recent illness. Related Data Home Medications ?Medication ?Instructions ?Recorded ?Confirmed propranolol 60 mg capsule,24 60 mg PO DAILY 08/28/23 02/09/24 hr,extended release valsartan 160 mg tablet 160 mg PO DAILY 08/28/23 02/09/24 multivitamin (Daily Multi-Vitamin 1 tab PO DAILY 08/16/24 tablet) Previous Rx's ?Medication ?Instructions ?Recorded oxybutynin chloride 5 mg 5 mg PO DAILY 90 days #90 tabs 02/14/25 tablet,extended release 24 hr tamsulosin 0.4 mg capsule 0.8 mg (2 x 0.4 mg) PO BEDTIME 90 02/14/25 days #180 caps Allergies Allergy/AdvReac Type Severity Reaction Status Date / Time No Known Allergies Allergy Verified 03/26/25 08:41 family hx of allergy to IVP Allergy Unknown Unknown Uncoded 03/26/25 08:41 dy LATEX Allergy Unknown Unknown Uncoded 03/26/25 08:41 N.K.D.A. Allergy Unknown Unknown Uncoded 03/26/25 08:41 Review of Systems Review of Systems: Yes all other systems are reviewed and are negative [facility] Past Medical History Attestation statement: The following information was validated with the patient. Source: old records reviewed and nursing notes reviewed Physical Exam Exam: Exam: Appearance: Alert.? Oriented X3.? No acute distress.? Head: Normocephalic, atraumatic, no step-offs or deformities Eyes: Pupils equal, round and reactive to light.? ENT: Pharynx normal.?+ No acute to visualized in the ear canal. No blood. Intact tympanic membrane. No pain with manipulation of external ears. Neck: Normal inspection.? Neck supple.? CVS: Normal heart rate and rhythm.? Pulses normal.? Respiratory: No respiratory distress.? Breath sounds normal.? Abdomen: Soft and nontender.? Skin: Skin warm and dry.? Normal skin color.? Normal skin turgor.? Extremities: No lower extremity edema.? No calf ttp. 5/5 strength to bilateral upper and lower extremities Back: No midline tenderness, no C-spine tenderness, full range of motion, no CVA tenderness bilaterally Neuro: Oriented X 3.? No motor deficit.? No sensory deficit. CN 2-12 intact Vital Signs: Vital Signs: Last Vital Signs Temp 98 F 03/26/25 08:38 Pulse 62 03/26/25 08:38 Resp 18 03/26/25 08:38 BP 170/84 H 03/26/25 08:38 Pulse Ox 98 03/26/25 08:38 O2 Del Method Room Air 03/26/25 08:38 BMI result Body Mass Index 39.7 vss Course Reevaluation(s) Reevaluation #1: Educated patient on diagnosis and treatment plan, answered all question, patient verbalizes understanding. At this time patient will be discharged home, advised to return with new or worsening symptoms. Educated on worrisome signs and symptoms and when to return. At this time I feel comfortable discharge home. Time: 09:00 Medical Decision Making Medical Decision Making [facility] Narrative: 65-year-old male presents with concerns that he might have acute tip to his right ear he is not sure. Physical exam benign. No acute to visualized in the ear canal. No blood. Intact tympanic membrane. No pain with manipulation of external ears. Physical exam normal right ear. No signs of foreign body or perforated tympanic membrane. No signs of otitis media or externa. Plan discharge patient from triage. No indication for further workup or treatment Differential Diagnosis Differential Diagnoses: The differential diagnosis associated with the presentation includes (Physical exam normal right ear. No signs of foreign body or perforated tympanic membrane. No signs of otitis media or externa.) Admission/Observation Consideration of admission/observation: Escalation of care including admission/observation considered Lab Data [facility] Lab Attestation statement: I reviewed the patient's lab results. External Record Review External record reviewed: Office record and Outpatient record Discharge Plan Discharge Clinical Impression: Normal exam Patient Disposition: Home, Self-Care Additional Instructions: Take your medications as prescribed. If you were prescribed antibiotics today, it is important that you take your medication to their entirety, do not skip any doses, do not finish them early. Follow-up with your primary care provider this week. Return to the emergency department with new or worsening symptoms. Such as fevers, chills, chest pain, shortness of breath, nausea, vomiting, dizziness, headache, vision changes, lethargy In case of emergency call 911 There was no visualized foreign body in the ear Prescriptions: No Action propranolol 60 mg capsule,extended release 24 hr 60 mg PO DAILY valsartan 160 mg tablet 160 mg PO DAILY multivitamin [Daily Multi-Vitamin] Tablet 1 tab PO DAILY oxybutynin chloride 5 mg tablet extended release 24hr 5 mg PO DAILY 90 Days Qty: 90 3RF tamsulosin 0.4 mg capsule 0.8 mg PO BEDTIME 90 Days Qty: 180 3RF Referrals: Marina Means FNP [Primary Care Provider, Family Practice] Print Language: Turkish
[2025-03-26 08:58] VITALS: BP 170/84; PULSE 62; RESP 18; TEMP 36.6; O2SAT 98
--- OUTSIDE RECORDS SUMMARY | 2025-03-26 08:59 | XMS_ITS ---
Author Name [facility] Organization Unknown Encounters Encounter Type Encounter Reason Primary Diagnosis Location Date Ambulatory [facility] 02/02/2025 Care Team Organization Name Specialty Phone Email Start Date End Da [facility] 02/05
--- OUTSIDE RECORDS SUMMARY | 2025-03-26 08:59 | XMS_ITS | Patient Health Record ---
Author Organization [facility] Address [address] [place] [address] Care Team Providers Care Furnace Maintenance Name Role Phone Oswald (RETIRED) Adán HECTOR Primary Care Provid er Unavailable Fernando Allison Jr Unavailable [phone] Reason For Referral No Information Medications Medication [...] W/U Status Risk Notes Problem Esophageal reflux (641032389) Esophageal reflux (530.81) Active confirmed Problem Blood in stool (261560520) Blood in stool (578.1) Active confirmed Problem Esophageal dysmotility (434197765) Esophageal dysmotility (530.5) Active confirmed Plan Of Treatment No Information Insurance Providers Payer Name Payer Address Payer Phone Subscriber Number Group Number Insured Name Patient Relationship to Insured Coverage Start Date Coverage End Date [facility] [address] [address] [place], [place] [id number] RONNI CORRALES Self - patient is the insured Medical (General) History Medical History History ICD Code plastic surgery ears Denies LA,DM,CVA,Lung disease,renal dise ase Surgical History Surgery Date(Month/Year) Plastic surgery on ears Left hand finger nerve repair
--- OUTSIDE RECORDS SUMMARY | 2025-03-26 08:59 | XMS_ITS | Clinical Summary ---
Author Organization [facility] Address [address] [place] [id number] Phone Care Team Providers Care Tube Handler Name Role Phone Robert Youngblood MD Primary [...] SMOKELESS TOBACCO SCREENING 02/08/1973 HIV ONE-TIME SCREENING (18-65 YEARS) 02/08/1978 COLOGUARD 02/08/2005 COLONOSCOPY 02/08/2005 COLORECTAL CANCER SCREENING 02/08/2005 FIT TEST 02/08/2005 FOBT 02/08/2005 SIGMOIDOSCOPY 02/08/2005 VIRTUAL COLONOSCOPY 02/08/2005 PNEUMOCOCCAL VACCINES (50+ years) (1 of 1 - PCV) 02/08/2010 ZOSTER VACCINES (1 of 2) 02/08/2010 DEPRESSION SCREENING 10/16/2023 10/15/2022, 10/16/19 23 INFLUENZA VACCINE (#1) 2025 , 03/16/2019, 07/13/2018, Additional history exists ABDOMINAL AORTIC ANEURYSM (AAA) SCREENING 02/08/2025 COVID-19 VACCINE ( season) 2025 10/17/2020, 09/26/2020 LIPID PANEL 08/11/2027 08/11/2022 Adult [...] topic Medical Devices Not on file Insurance [employer] [place] [address] [address] [employer] O [facility] ASHCAMPCAPE TechnologiesGL[facility] [address] [place], [place] [address] Care Teams Tube Handler Relationship Specialty Start Date End Date Robert Youngblood MD [address] [place] [phone] [email or web address] PCP - General Family Medicine 05/04/24 Additional Source Comments The information contained in this document represents components of the legal health record. It is not the complete legal health record.[facility]
== END 2025-03-26 09:09 | disposition home or self-care (01) ==
PROVIDERS: Emergency Provider Emergency Medicine; PCP Nurse Practitioner Family
DX: T16.1XXA Foreign body in right ear, initial encounter (principal); W44.9XXA Unspecified foreign body entering into or through a natural orifice, initial encounter; Y93.9 Activity, unspecified; Y92.9 Unspecified place or not applicable; Y99.8 Other external cause status; Z79.899 Other long term (current) drug therapy
CPT/HCPCS: 99282